=== PATIENT | female | born 1960 | race Caucasian/White ===

== ENCOUNTER 2016-03-14 11:20 | Emergency (ER) | payer SELFPAY ==
[~2016-03-14] VITALS: Ht 157.5 cm; Wt 75.3 kg
[2016-03-14 11:20] VITALS: BP 154/99
[2016-03-14 12:40] LABS: KETONES,URINE TRACE (NEGATIVE); LEUKOCYTE ESTERASE ,URINE 2+ (NEGATIVE); PH,URINE 6.5 (5.0-8.0)
[2016-03-14 12:43] LABS: ADD UA MICROSCOPIC YES
[2016-03-14 13:13] LABS: ADD URINE CULTURE YES; WBC,URINE 15-20 /HPF (0-3)
[2016-03-14] MEDS ORDERED: HYDROCODONE/APAP 5/325MG 1 EACH TABLET PO ONE (13:30)
== END 2016-03-14 13:45 | disposition home or self-care (01) ==
LOC: ER 11:22
DX: B37.3 Candidiasis of vulva and vagina (principal); N39.0 Urinary tract infection, site not specified; M54.5 Low back pain
CPT/HCPCS: 81001; 87077; 87086; 87186; 99284; A4606; Z7610; 81000-TC